=== PATIENT | male | born 1995 | race Caucasian/White ===

== ENCOUNTER 2017-01-11 10:28 | Outpatient (RCR) | payer MEDICAID | END 2017-01-13 | disposition home or self-care (01) | LOC: M PT 10:28 | PROVIDERS: ATTEND Orthopaedic Surgery | DX: Z51.89 Encounter for other specified aftercare (principal); M24.211 Disorder of ligament, right shoulder; M24.212 Disorder of ligament, left shoulder ==

== ENCOUNTER 2017-02-01 14:17 | Outpatient (RCR) | payer MEDICAID, OTHER, SELFPAY | END 2017-02-13 | disposition home or self-care (01) | LOC: M PT 14:17 | PROVIDERS: ATTEND Orthopaedic Surgery | DX: Z51.89 Encounter for other specified aftercare (principal); M24.211 Disorder of ligament, right shoulder; M24.212 Disorder of ligament, left shoulder ==

== ENCOUNTER → 2017-03-16 | Outpatient (RCR) | payer OTHER | END | disposition home or self-care (01) | LOC: M PT 02-28 15:15 | PROVIDERS: ATTEND Orthopaedic Surgery | DX: Z51.89 Encounter for other specified aftercare (principal); M25.511 Pain in right shoulder; M25.512 Pain in left shoulder ==

== ENCOUNTER 2017-04-13 13:34 | Outpatient (RCR) | payer OTHER | END 2017-04-15 | disposition home or self-care (01) | LOC: M PT 13:34 | PROVIDERS: ATTEND Orthopaedic Surgery | DX: Z51.89 Encounter for other specified aftercare (principal); M24.211 Disorder of ligament, right shoulder; M24.212 Disorder of ligament, left shoulder ==

== ENCOUNTER 2018-08-05 20:35 | Emergency (ER) | payer OTHER ==
[~2018-08-05] VITALS: Ht 177.8 cm; Wt 96.0 kg
[2018-08-05] MEDS ORDERED: ALBUTEROL SULFATE 2.5 MG/0.5 ML INH NEB SOLN INH ONE (21:15)
[2018-08-05] MEDS ORDERED: predniSONE 20 MG TAB PO ONE (21:45)
[2018-08-05] MEDS ORDERED: BENZ200C70 PO (21:46)
[2018-08-05] MEDS ORDERED: VENTAER INH (21:46)
[2018-08-05] MEDS ORDERED: PRED20TA PO (21:46)
[2018-08-05 22:10] VITALS: BP 127/80
--- NOTE | 2018-08-06 03:55 | REP ---
Clinical: Cough . Comparison: None . Technique: PA and lateral. Findings: The mediastinum and cardiac silhouette are normal. The lung friedman are clear and without acute consolidation, effusion, or pneumothorax. The skeletal structures are intact and normal. Impression: 1. No acute cardiopulmonary process. Electronically Signed by Jasper Issa MD 08/06/2018 03:46 A
== END 2018-08-05 22:12 | disposition home or self-care (01) ==
LOC: M ED 20:35
DX: J98.01 Acute bronchospasm (principal)

== ENCOUNTER 2018-10-22 19:54 | Emergency (ER) | payer OTHER ==
[~2018-10-22] VITALS: Ht 177.8 cm; Wt 98.3 kg
[~2018-10-22 19:54] MED LIST: BENZ200C70 PO; PRED20TA PO; VENTAER INH
[2018-10-23] MEDS ORDERED: KETOROLAC 60 MG/2 ML VIAL (J1885) IM ONE (01:30)
[2018-10-23] MEDS ORDERED: KETO10TAB PO (01:34)
[2018-10-23] MEDS ORDERED: VOLT1GEL15 TOP (01:34)
[2018-10-23 01:41] VITALS: BP 118/68
== END 2018-10-23 01:42 | disposition home or self-care (01) ==
LOC: M ED 19:54
DX: M25.512 Pain in left shoulder (principal)
CPT/HCPCS: 96372; 99284; J1885

== ENCOUNTER 2018-11-07 12:41 | Outpatient (RCR) | payer OTHER ==
[~2018-11-07 12:41] MED LIST changes: +KETO10TAB PO; +VOLT1GEL15 TOP
== END 2018-11-13 ==
LOC: M PT 12:41
PROVIDERS: ATTEND Orthopaedic Surgery Sports Medicine
DX: M21.822 Other specified acquired deformities of left upper arm (principal)

== ENCOUNTER 2018-12-13 12:58 | Outpatient (RCR) | payer OTHER | END 2018-12-14 | disposition home or self-care (01) | LOC: M PT 12:58 | PROVIDERS: ATTEND Orthopaedic Surgery Sports Medicine | DX: M21.822 Other specified acquired deformities of left upper arm (principal) ==

== ENCOUNTER 2018-12-27 12:54 | Outpatient (RCR) | payer OTHER | END 2019-01-13 | LOC: M PT 12:54 | PROVIDERS: ATTEND Orthopaedic Surgery Sports Medicine | DX: S39.012D Strain of muscle, fascia and tendon of lower back, subsequent encounter (principal); X58.XXXD Exposure to other specified factors, subsequent encounter; M54.2 Cervicalgia; M54.6 Pain in thoracic spine ==

== ENCOUNTER → 2020-05-18 | Outpatient (REF) | payer OTHER, MEDICAID ==
[2020-05-18 17:25] LABS: BASO # 0.1 10^3/uL (0.0-0.2); BASO % 0.5 % (0.0-1.0); EOS # 0.4 10^3/uL (0.0-0.5); EOS % 4.6 % (0.0-3.0); HEMATOCRIT 48.8 % (42.0-52.0); HEMOGLOBIN 15.4 g/dl (13.5-17.5); LYMPH # 2.4 10^3/uL (1.5-5.0); LYMPH % 25.1 % (24.0-44.0); MEAN CORPUSCULAR HEMOGLOBIN 27.9 pg (27.0-33.0); MEAN CORPUSCULAR HGB CONC 31.6 g/dl (32.0-36.5); MEAN CORPUSCULAR VOLUME 88.4 fl (80.0-96.0); MONO # 0.8 10^3/uL (0.0-0.8); MONO % 8.4 % (0.0-5.0); NEUTROPHILS # 5.8 10^3/uL (1.5-8.5); NEUTROPHILS % 60.7 % (36.0-66.0); PLATELET COUNT, AUTOMATED 282 10^3/uL (150-450); RED BLOOD COUNT 5.52 10^6/uL (4.30-6.10); WHITE BLOOD COUNT 9.6 10^3/uL (4.0-10.0)
[2020-05-18 19:29] LABS: ALT/SGPT 69 U/L (12-78); BILIRUBIN,TOTAL 0.3 MG/DL (0.2-1.0); BLOOD UREA NITROGEN 10 MG/DL (7-18); CALCIUM LEVEL 9.3 MG/DL (8.5-10.1); CARBON DIOXIDE LEVEL 29 MEQ/L (21-32); CHLORIDE LEVEL 105 MEQ/L (98-107); CHOLESTEROL LEVEL 215 MG/DL (<200); CHOLESTEROL RISK RATIO 6.935 (<5); CREATININE FOR GFR 1.04 MG/DL (0.70-1.30); FREE T4 0.87 NG/DL (0.76-1.46); GLOMERULAR FILTRATION RATE > 60.0 (>60); GLUCOSE, FASTING 89 MG/DL (70-100); HDL CHOLESTEROL 31 MG/DL (>40); LDL CHOLESTEROL 136 MG/DL (<100); NON-HDL-C 184 MG/DL; POTASSIUM SERUM 4.3 MEQ/L (3.5-5.1); SODIUM LEVEL 140 MEQ/L (136-145); TOTAL 25(OH) VITAMIN D 12.9 NG/ML (30.0-100.0); TOTAL PROTEIN 7.4 GM/DL (6.4-8.2); TRIGLYCERIDES LEVEL 241 MG/DL (<150)
[2020-05-18 20:11] LABS: HEMOGLOBIN A1c 5.3 %
== END ==
LOC: M LAB REF 16:16
PROVIDERS: ATTEND Nurse Practitioner Family
DX: Z00.01 Encounter for general adult medical examination with abnormal findings (principal); Z13.9 Encounter for screening, unspecified; E66.9 Obesity, unspecified

== ENCOUNTER → 2020-09-17 | Outpatient (REF) | payer OTHER, MEDICAID ==
[2020-09-17 18:15] LABS: BASO # 0.1 10^3/uL (0.0-0.2); BASO % 0.5 % (0.0-1.0); EOS # 0.5 10^3/uL (0.0-0.5); EOS % 4.7 % (0.0-3.0); HEMATOCRIT 50.2 % (42.0-52.0); HEMOGLOBIN 15.7 g/dl (13.5-17.5); LYMPH # 2.8 10^3/uL (1.5-5.0); LYMPH % 29.1 % (24.0-44.0); MEAN CORPUSCULAR HEMOGLOBIN 27.6 pg (27.0-33.0); MEAN CORPUSCULAR HGB CONC 31.3 g/dl (32.0-36.5); MEAN CORPUSCULAR VOLUME 88.2 fl (80.0-96.0); MONO # 0.8 10^3/uL (0.0-0.8); MONO % 7.8 % (2.0-8.0); NEUTROPHILS # 5.5 10^3/uL (1.5-8.5); NEUTROPHILS % 57.5 % (36.0-66.0); PLATELET COUNT, AUTOMATED 286 10^3/uL (150-450); RED BLOOD COUNT 5.69 10^6/uL (4.30-6.10); WHITE BLOOD COUNT 9.6 10^3/uL (4.0-10.0)
[2020-09-17 18:37] LABS: ALT/SGPT 82 U/L (12-78); BILIRUBIN,TOTAL 0.4 MG/DL (0.2-1.0); BLOOD UREA NITROGEN 15 MG/DL (7-18); CALCIUM LEVEL 9.3 MG/DL (8.5-10.1); CARBON DIOXIDE LEVEL 32 MEQ/L (21-32); CHLORIDE LEVEL 107 MEQ/L (98-107); CHOLESTEROL LEVEL 228 MG/DL (<200); CHOLESTEROL RISK RATIO 6.909 (<5); GLOMERULAR FILTRATION RATE > 60.0 (>60); GLUCOSE, FASTING 77 MG/DL (70-100); HDL CHOLESTEROL 33 MG/DL (>40); LDL CHOLESTEROL 154 MG/DL (<100); NON-HDL-C 195 MG/DL; POTASSIUM SERUM 4.2 MEQ/L (3.5-5.1); SODIUM LEVEL 143 MEQ/L (136-145); TOTAL PROTEIN 7.5 GM/DL (6.4-8.2); TRIGLYCERIDES LEVEL 205 MG/DL (<150)
[2020-09-17 18:46] LABS: TOTAL 25(OH) VITAMIN D 11.9 NG/ML (30.0-100.0)
== END ==
LOC: M LAB REF 16:25
PROVIDERS: ATTEND Nurse Practitioner Family
DX: E78.2 Mixed hyperlipidemia (principal); E66.9 Obesity, unspecified; E56.9 Vitamin deficiency, unspecified

== ENCOUNTER → 2024-01-25 | Outpatient (REF) | payer OTHER, MEDICAID ==
[2024-01-25 13:49] LABS: ALKALINE PHOSPHATASE 64 U/L (46-116); ALT/SGPT 72 U/L (7.0-40); AST/SGOT 29 U/L (<34); BILIRUBIN,TOTAL 0.6 MG/DL (0.3-1.2); BLOOD UREA NITROGEN 13 MG/DL (9-23); CALCIUM LEVEL 9.7 MG/DL (8.5-10.1); CARBON DIOXIDE LEVEL 30 MMOL/L (20-31); CHLORIDE LEVEL 105 MMOL/L (98-107); CHOLESTEROL LEVEL 221 MG/DL (<200); CHOLESTEROL RISK RATIO 7.94 (<5); CREATININE FOR GFR 0.99 MG/DL (0.70-1.30); GLOMERULAR FILTRATION RATE > 60.0 (>60); GLUCOSE, FASTING 91 MG/DL (60-100); HDL CHOLESTEROL 27.8 MG/DL (>40); LDL CHOLESTEROL 156.4 MG/DL (<100); NON-HDL-C 193.2 MG/DL; POTASSIUM SERUM 4.2 MMOL/L (3.5-5.1); SODIUM LEVEL 141 MMOL/L (136-145); TOTAL PROTEIN 7.3 G/DL (5.7-8.2); TRIGLYCERIDES LEVEL 184 MG/DL (<150)
[2024-01-25 13:50] LABS: THYROID STIMULATING HORMONE 2.206 uIU/ML (0.55-4.78)
[2024-01-25 13:51] LABS: TOTAL 25(OH) VITAMIN D 26.5 NG/ML (20.0-100.0)
[2024-01-25 14:22] LABS: HEMOGLOBIN A1c 5.1 % (4.0-6.0)
== END ==
LOC: M LAB REF 12:50
PROVIDERS: ATTEND Physician Assistant
DX: Z11.9 Encounter for screening for infectious and parasitic diseases, unspecified (principal); E55.9 Vitamin D deficiency, unspecified; E66.9 Obesity, unspecified

== ENCOUNTER → 2025-05-06 | Outpatient (REF) | payer MEDICARE, MEDICAID ==
[2025-05-06 17:07] LABS: CALCIUM LEVEL 9.5 MG/DL (8.5-10.1); CARBON DIOXIDE LEVEL 29 MMOL/L (20-31); CHLORIDE LEVEL 103 MMOL/L (98-107); CHOLESTEROL LEVEL 221 MG/DL (<200); CHOLESTEROL RISK RATIO 7.12 (<5); CREATININE FOR GFR 1.05 MG/DL (0.70-1.30); GLOMERULAR FILTRATION RATE > 90.0 (>60); LDL CHOLESTEROL 152.2 MG/DL (<100); NON-HDL-C 190.0 MG/DL; POTASSIUM SERUM 4.3 MMOL/L (3.5-5.1); SODIUM LEVEL 142 MMOL/L (136-145); TRIGLYCERIDES LEVEL 189 MG/DL (<150)
== END ==
LOC: M LAB REF 16:16
PROVIDERS: ATTEND Physician Assistant
DX: E78.2 Mixed hyperlipidemia (principal)